=== PATIENT | male | born 1970 | race Caucasian/White ===

== ENCOUNTER 2019-04-19 02:07 | Emergency (ER) | payer SELFPAY ==
--- NOTE | 2019-04-19 02:34 | EDM.PDOCBH ---
ED HPI GENERAL MEDICAL PROBLEM - General Chief Complaint: Behavioral/Psych Stated Complaint: ALIYA SHAH Time Seen by Provider: 04/19/19 02:33 Source of Information: Reports: Patient History Limitations: Reports: No Limitations - History of Present Illness INITIAL COMMENTS - FREE TEXT/NARRATIVE: 48-year-old male presents to the ED after walking to the ED about 2 miles. He is currently residing at his parent's home which is around the [facility]. He reports that he has not slept at all for the last 3-4 days. Feels exhausted and tired but cannot fall asleep. Patient was started on gabapentin 100 mg 3 times a day about a month ago for peripheral neuropathy in his feet which was disturbing his sleep. He has been gradually escalating the dose and still has symptomatology in his feet. He is starting to experience suicidal ideation. He states that he is hearing voices telling him that he should kill himself. His is the reason that he attended the ED. He has no past history of psychiatric illness. He is alert oriented and denies any substance abuse issues. He is a type II diabetic controlled with oral medication. Denies drinking any alcohol. Has no appetite. Onset Date: 04/18/19 (Auditory hallucinations with suicidal ideation telling him that he should kill himself started yesterday. They come and go. He has never felt suicidal before.) Duration: Hour(s):, Day(s): (Has not slept for 3 or 4 days.) Location: Reports: Other (Severe insomnia with development of psychosis-like symptoms.) Quality: Reports: Other Severity: Severe (Insomnia mostly for 3-4 days.) Improves with: Reports: None Worsens with: Reports: None Context: Denies: Activity, Exercise, Lifting, Sick Contact, Trauma, Other Associated Symptoms: Reports: Other (Feels absolutely exhausted.) Treatments RIGHT OF WAY CLEARER: Reports: Other (see below) (Gabapentin) - Related Data Allergies Allergy/AdvReac Type Severity Reaction Status Date / Time hornet venom Allergy Hives Verified 04/19/19 02:29 promethazine AdvReac Vomiting Verified 04/19/19 02:29 Home Meds: Home Meds clonazePAM [Klonopin] 2 mg PO DAILY PRN #12 tablet 04/19/19 [Rx] hydrOXYzine HCl [Hydroxyzine HCl] 25 mg PO DAILY PRN #30 tablet 04/19/19 [Rx] Past Medical History Musculoskeletal History: Reports: Other (See Below) (Previous MRSA infection left foot that required 6 weeks of IV antibiotics through a PICC line right antecubital fossa. He believes this is the cause of his peripheral neuropathy. It is more likely to be caused from his diabetes.) Endocrine/Metabolic History: Reports: Diabetes, Type II (On diet and oral medications for diabetes control.) Social & Family History - Living Situation & Occupation Living situation: Reports: Occupation: Employed ED ROS GENERAL - Review of Systems Review Of Systems: See Below Constitutional: Reports: Malaise, Weakness, Fatigue, Decreased Appetite, Other. Denies: Fever, Chills HEENT: Reports: No Symptoms (Feels exhausted.) Respiratory: Reports: No Symptoms Cardiovascular: Reports: No Symptoms, Blood Pressure Problem. Denies: Chest Pain, Claudication, Dyspnea on Exertion, Edema, Lightheadedness, Orthopnea ( Mild hypertension) Endocrine: Reports: Fatigue GI/Abdominal: Reports: No Symptoms : Reports: No Symptoms Musculoskeletal: Reports: Leg Pain (Bilateral lower extremity pain but much worse in the left side where he had MRSA infection.) Skin: Reports: No Symptoms Neurological: Reports: Numbness, Tingling, Other (Burning sensation left foot and leg due to peripheral neuropathy.) Psychiatric: Reports: Anxiety, Hallucinations (Auditory hallucinations.), Suicidal Ideation, Other (Severe insomnia with no sleep for 4 days.) Hematologic/Lymphatic: Reports: No Symptoms Immunologic: Reports: No Symptoms ED EXAM, BEHAVIORAL HEALTH - Physical Exam Exam: See Below Exam Limited By: No Limitations General Appearance: Alert, WD/WN, Other (Appears exhausted. All questions quite appropriately however. No signs of intoxication. Vital signs show temperature 36.2 pulse is 94 sinus respiratory of 20 O2 sats of 99%. BP 128/99.) Eye Exam: Bilateral Eye: Normal Inspection, PERRL Throat/Mouth: Other Head: Atraumatic (Tongue is moist.), Normocephalic, Other Neck: Normal Inspection, Supple (No old signs of any head or facial trauma.), Non-Tender, Full Range of Motion. No: Lymphadenopathy (L), Lymphadenopathy (R) Respiratory/Chest: No Respiratory Distress, Lungs Clear, Normal Breath Sounds, No Accessory Muscle Use, Chest Non-Tender Cardiovascular: Normal Peripheral Pulses, Regular Rate, Rhythm, No Edema, No Gallop, No Murmur, No Rub GI/Abdominal: Normal Bowel Sounds, Soft, Non-Tender, No Organomegaly, No Abnormal Bruit, No Mass, Pelvis Stable Extremities: Normal Inspection, Normal Range of Motion, Non-Tender. No: Pedal Edema Neurological: Alert, CN II-XII Intact, Normal Cognition, No Motor/Sensory Deficits, Oriented x 3 Psychiatric: Normal Cognition, Oriented, Depressed Mood, Flat Affect, Suicidal Thoughts, Auditory Hallucinations (Requesting auditory hallucinations telling him to kill himself.). No: Normal Affect, Poor Eye Contact, Uncooperative, Withdrawn, Flight of Ideas, Homicidal Thoughts, Phobic, Yarsani Delusions, Suicidal Plan, Tangential Thoughts, Visual Hallucinations, Grandiose Thoughts, Pressured Speech Skin Exam: Warm, Dry, Intact, Normal color, No rash COURSE, BEHAVIORAL HEALTH COMP - Course Vital Signs: Last Vital Signs Temp 37.3 C 04/19/19 08:00 Pulse 102 H 04/19/19 08:00 Resp 16 04/19/19 08:00 BP 137/99 H 04/19/19 08:00 Pulse Ox 99 04/19/19 08:00 Orders, Labs, Meds: Medications Discontinued Medications Generic Name Dose Route Start Last Admin Trade Name Freq PRN Reason Stop Dose Admin Hydroxyzine HCl 50 mg 04/19/19 02:42 04/19/19 02:56 Atarax PO 04/19/19 02:43 50 mg ONETIME ONE Administration Lorazepam 2 mg 04/19/19 02:41 04/19/19 02:56 Ativan PO 04/19/19 02:42 2 mg ONETIME ONE Administration Re-Assessment/Re-Exam: 48-year-old male presents to the ED after walking a mile and a half to 2 miles to the [facility]. States he simply can't sleep for the last 3-4 days and feels exhausted. He started to have auditory hallucinations telling him that he should kill himself. He has never felt this way before. He has chronic peripheral neuropathy in both lower extremities worse on the left side versus the right. He been slowly increasing gabapentin which he was started on a boat a month ago with very minimal relief of the burning and paresthesia sensation in his feet. Patient is a type II diabetic when he states his blood sugars are well-controlled on diet and oral medications. After discussion it appears that his suicidal ideations are few and far between. They just started yesterday and he states it simply due to lack of sleep which I do agree with. Patient will be given Ativan 2 mg by mouth and Atarax 50 mg by mouth to try and allow him some sleep. Will reevaluate after he gets some sleep to see if he is still feeling suicidal. Re-Assessment/Re-Exam Date: 04/19/19 (04:15: Patient has been able to sleep since receiving medication.) Re-Assessment/Re-Exam Time: 06:37 (Ration continues to sleep peacefully. Vital signs have remained normal with BP 133/84. Sats are 97%.) Departure - Departure Time of Disposition: 08:00 Disposition: Home, Self-Care 01 Condition: Fair Clinical Impression: Exhaustion, Depressive disorder, Passive suicidal ideations Insomnia disorder Qualifiers: Insomnia type: primary Qualified Code(s): F51.01 - Primary insomnia - Discharge Information *PRESCRIPTION DRUG MONITORING PROGRAM REVIEWED*: No *COPY OF PRESCRIPTION DRUG MONITORING REPORT IN PATIENT STAS: No Prescriptions: clonazePAM [Klonopin] 2 mg PO DAILY PRN #12 tablet PRN Reason: Insomnia hydrOXYzine HCl [Hydroxyzine HCl] 25 mg PO DAILY PRN #30 tablet PRN Reason: Insomnia Instructions: Suicidal Feelings: How to Help Yourself, Insomnia Referrals: Therese Koroma MD [Primary Care Provider] - Forms: ED Department Discharge Additional Instructions: Evaluation in the emergency room this morning in regards to severe insomnia with inability to sleep for the last 4 days or longer. His is resulted in significant exhaustion and mental stress. You admitted that you were having some suicidal ideation with no definitive plan. I believe this was secondary to exhaustion from insomnia--lack of ability to sleep. I understand that you're under duress with recent plain moved to [place]. You were treated in the emergency room with oral medications Ativan 2 mg and Atarax 50 mg to provide sleep. You slept well in the emergency department. Suggest taking Clonazapam 2 mg at bedtime and Atarax 25 mg at bedtime for the next 2 or 3 nights to ensure that you catch up on lack of sleep. If you continue to have thoughts of suicide or that she would be better off please go to one of the hospitals in [facility] emergency department for help. For now may continue gabapentin 3 times daily as you have been doing to help with peripheral neuropathy in your legs.
[2019-04-19] MEDS ORDERED: LORazepam 1 MG Tab PO ONE (02:41)
[2019-04-19] MEDS ORDERED: hydrOXYzine HCl 50 MG Tab PO ONE (02:42)
== END 2019-04-19 08:00 | disposition home or self-care (01) ==
LOC: JD.ED 02:07
DX: F32.9 Major depressive disorder, single episode, unspecified (principal); F51.01 Primary insomnia; R53.83 Other fatigue; E11.9 Type 2 diabetes mellitus without complications; Z91.030 Bee allergy status; Z88.8 Allergy status to other drugs, medicaments and biological substances
CPT/HCPCS: 99284; A9270

== ENCOUNTER 2019-12-09 08:27 | Day surgery (SDC) | payer OTHER, SELFPAY ==
--- NOTE | 2019-12-08 12:11 | PCM.PREANE ---
Preanesthetic Assessment - Procedure Proposed Procedure: Diagnostic EGD - Anesthesia/Transfusion/Family Hx Anesthesia History: No Prior Anesthesia Family History of Anesthesia Reaction: No Transfusion History: No Prior Transfusion(s) Intubation History: Unknown - Review of Systems General: No Symptoms, Fatigue Pulmonary: No Symptoms (Former smoker: 1-2 ppd times 30 years.(2010 quit date), ETOH: rarely) Cardiovascular: No Symptoms (HTN) Gastrointestinal: No Symptoms (GERD with certain foods), Abdominal Pain (RLQ reactive lymphadenopathy/? acute appendicitis), Constipation, Decreased Appetite (unintentional weight loss of 15#'s noted) Neurological: No Symptoms (History of vertigo for a whole year (6 yrs ago)/history of bulging disk in lower back.), Tingling (bilateral feet chronic/ history of MRSA in left foot.) Other: Reports: Diabetes (AM blood bwmdf=[id number] @ 0840), Depression, Anxiety - Physical Assessment NPO Status Date: 12/08/19 NPO Status Time: 20:00 Vital Signs: HR:84 Sat:95% B/P:146/100 Temp:97.7 Resp:16 Height: 1.83 m Weight: 117.027 kg ASA Class: 3 Mental Status: Alert & Oriented x3 Airway Class: Mallampati = 2 Dentition: Reports: Normal Dentition, Caries Thyro-Mental Finger Breadths: 3 Mouth Opening Finger Breadths: 3 ROM/Head Extension: Full Lungs: Clear to Auscultation, Normal Respiratory Effort Cardiovascular: Regular Rate, Regular Rhythm, No Murmurs - Lab Values: All labs reviewed and noted and within acceptable ranges to proceed with scheduled procedure. - Allergies Allergies/Adverse Reactions: Allergies Allergy/AdvReac Type Severity Reaction Status Date / Time hornet venom Allergy Hives Verified 12/08/19 16:24 promethazine AdvReac Vomiting Verified 12/08/19 16:24 - Anesthesia Plan Pre-Op Medication Ordered: None - Acknowledgements Anesthesia Type Planned: MAC Pt an Appropriate Candidate for the Planned Anesthesia: Yes Alternatives and Risks of Anesthesia Discussed w Pt/Guardian: Yes Pt/Guardian Understands and Agrees with Anesthesia Plan: Yes PreAnesthesia Questionnaire Cardiovascular History: Reports: Hypertension Musculoskeletal History: Reports: Other (See Below) (Previous MRSA infection left foot that required 6 weeks of IV antibiotics through a PICC line right antecubital fossa. He believes this is the cause of his peripheral neuropathy. It is more likely to be caused from his diabetes.) Psychiatric History: Reports: Anxiety, Depression Endocrine/Metabolic History: Reports: Diabetes, Type II (On diet and oral medications for diabetes control.) - HOME MEDS Home Medications: Home Meds ARIPiprazole [Aripiprazole] 2 mg PO DAILY 12/08/19 [History] Empagliflozin [Jardiance] 25 mg PO DAILY 12/08/19 [History] Lisinopril/Hydrochlorothiazide [Lisinopril-Hctz 20-25 mg Tab] 1 tab PO DAILY 12/08/19 [History] Rosuvastatin [Crestor] 10 mg PO DAILY 12/08/19 [History] Sertraline HCl 25 mg PO DAILY 12/08/19 [History] Sildenafil [Viagra] 100 mg PO ASDIRECTED PRN 12/08/19 [History] clonazePAM [Klonopin] 2 mg PO BEDTIME PRN 12/08/19 [History] ondansetron HCL [Zofran] 8 mg PO Q8H PRN 12/08/19 [History] - CURRENT (IN HOUSE) MEDS Current Meds: Current Medications Lactated Ringer's (Ringers, Lactated) 1,000 mls @ 125 mls/hr IV ASDIRECTED MAY Stop: 12/09/19 23:00 Lidocaine/Sodium Bicarbonate (Buffered Lidocaine 1% In Ns 8.4%) 0.25 ml IDERM ONETIME PRN PRN Reason: Prior to IV Start Stop: 12/09/19 18:00 Sodium Chloride (Saline Flush) 10 ml FLUSH ASDIRECTED PRN PRN Reason: Keep Vein Open Stop: 12/09/19 18:00
[~2019-12-09 08:27] MED LIST: Lactated Ringers 1,000 ML IV SCH; Lidocaine 1% 6 ML ONE; Lidocaine 1%/Sod Bicarbonate in NS 8.4% 1 ML Syringe IDERM PRN; Propofol 200 MG/20 ML SDV ONE; Sodium Chloride 0.9% 10 ML Syringe FLUSH PRN; fentaNYL 100 MCG/2 ML SDV ONE
[2019-12-09] MEDS ORDERED: Ondansetron 4 MG/2 ML SDV ONE (09:13)
--- NOTE | 2019-12-09 09:37 | PCM48HPAN ---
Post Anesthesia Note - EVALUATION WITHIN 48HRS OF ANESTHETIC Vital Signs in Normal Range: Yes Patient Participated in Evaluation: Yes Respiratory Function Stable: Yes Airway Patent: Yes Cardiovascular Function Stable: Yes Hydration Status Stable: Yes Pain Control Satisfactory: Yes Nausea and Vomiting Control Satisfactory: Yes Mental Status Recovered: Yes Vital Signs: Last Vital Signs Temp 36.5 C 12/09/19 08:30 Pulse 84 12/09/19 08:30 Resp 16 12/09/19 08:30 BP 146/100 H 12/09/19 08:30 Pulse Ox 95 12/09/19 08:30
--- NOTE | 2019-12-09 09:56 | PCM.PRNOTE ---
- Free Text/Narrative Note: Date: 12/09/2019 Procedure: diagnostic esophagogastroduodenoscopy Endoscopist: Alf Bell MD Findings: no gross abnormality Detailed report: The patient was taken to the endoscopy suite and placed in left lateral decubitus position. Time out was performed and monitored sedation initiated. A bite-block was placed. The endoscope was inserted into the mouth and advanced to the duodenum with ease. Duodenal mucosa appeared grossly normal, a sample biopsy was obtained with forceps. The stomach also appeared grossly normal, with no evidence of ulceration or inflammation. Sample biopsies were obtained of the antrum and body of the stomach. On retroflexion, the fundus appeared normal, and there was no evidence of hiatal hernia. The distal esophagus appeared normal, with normal Z line. No gross evidence for metaplasia or reflux esophagitis noted. A biopsy of the distal esophageal mucosa was obtained. The remainder of the esophagus appeared normal. Air was suctioned from the stomach, and the scope was completely withdrawn. The patient tolerated the procedure well.
== END 2019-12-09 10:15 | disposition home or self-care (01) ==
LOC: JD.SDS 08:27
PROVIDERS: ATTEND Surgery
DX: K29.50 Unspecified chronic gastritis without bleeding (principal); F41.9 Anxiety disorder, unspecified; F32.9 Major depressive disorder, single episode, unspecified; I10 Essential (primary) hypertension; E78.5 Hyperlipidemia, unspecified; E11.9 Type 2 diabetes mellitus without complications; Z88.8 Allergy status to other drugs, medicaments and biological substances; Z79.899 Other long term (current) drug therapy; Z87.891 Personal history of nicotine dependence
CPT/HCPCS: 43239; 82962; J2001; J2405; J2704; J3010; J7120; 00731

== ENCOUNTER 2021-01-23 14:35 | Emergency (ER) | payer OTHER ==
[~2021-01-23 14:35] MED LIST changes: +Amiodarone 150 MG/3 ML SDV ONE; +Calcium Chloride 10% 1 GM/10 ML Syringe ONE; +EPINEPHrine 1:10,000 1 MG/10 ML Syringe ONE; -Lactated Ringers 1,000 ML IV SCH; -Lidocaine 1% 6 ML ONE; -Lidocaine 1%/Sod Bicarbonate in NS 8.4% 1 ML Syringe IDERM PRN; +Lidocaine 2% 100 MG/5 ML Syringe ONE; -Propofol 200 MG/20 ML SDV ONE; +Sodium Bicarbonate 8.4% 50 MEQ/50 ML Syringe ONE; -Sodium Chloride 0.9% 10 ML Syringe FLUSH PRN; -fentaNYL 100 MCG/2 ML SDV ONE
--- NOTE | 2021-01-24 07:21 | EDM.PDOC ---
ED HPI GENERAL MEDICAL PROBLEM - General Chief Complaint: CPR in Progress Stated Complaint: [facility] Time Seen by Provider: 01/23/21 14:35 - History of Present Illness INITIAL COMMENTS - FREE TEXT/NARRATIVE: 50-year-old male brought in by EMS after having an episode at home. By history the patient fell out of the shower in a very awkward position his heard him went up to help could not move him did not believe he was breathing he took 3 deep breaths over the course of 3 to 5 minutes. She cannot move him out of the face down position. EMS arrived he was in V. fib resuscitative efforts started 7 to 10 minutes after he fell out of the shower. According to the the patient has not been feeling well for the last week he had a syncopal-like episode shortly before last week and he has been having intermittent chest discomfort throughout this last week. Patient is a diabetic. - Related Data Allergies Allergy/AdvReac Type Severity Reaction Status Date / Time hornet venom Allergy Hives Verified 12/08/19 16:24 promethazine AdvReac Vomiting Verified 12/08/19 16:24 Home Meds: Home Meds ARIPiprazole [Aripiprazole] 2 mg PO DAILY 12/08/19 [History] Empagliflozin [Jardiance] 25 mg PO DAILY 12/08/19 [History] Lisinopril/Hydrochlorothiazide [Lisinopril-Hctz 20-25 mg Tab] 1 tab PO DAILY 12/08/19 [History] Rosuvastatin [Crestor] 10 mg PO DAILY 12/08/19 [History] Sertraline HCl 25 mg PO DAILY 12/08/19 [History] Sildenafil [Viagra] 100 mg PO ASDIRECTED PRN 12/08/19 [History] clonazePAM [Klonopin] 2 mg PO BEDTIME PRN 12/08/19 [History] ondansetron HCL [Zofran] 8 mg PO Q8H PRN 12/08/19 [History] Temazepam 30 mg PO ASDIRECTED 12/09/19 [History] Empagliflozin [Jardiance] 25 mg PO 01/20/21 [History] LORazepam [Ativan] 1 mg PO 01/20/21 [History] Loratadine [Claritin] 10 mg PO DAILY 01/20/21 [History] amLODIPine [Norvasc] 5 mg PO DAILY 01/20/21 [History] lisinopriL [Prinivil] 40 mg PO DAILY 01/20/21 [History] predniSONE [Prednisone] 50 mg PO 01/20/21 [History] tadalafiL [Alyq] 20 mg PO 01/20/21 [History] Past Medical History HEENT History: Reports: Allergic Rhinitis Cardiovascular History: Reports: Hypertension Respiratory History: Reports: None Gastrointestinal History: Reports: Other (See Below) Other Gastrointestinal History: abdominal pain, appendicitis, nausea Genitourinary History: Reports: Other (See Below) Other Genitourinary History: erectile dysfunction [employer] History: Reports: None Musculoskeletal History: Reports: Other (See Below) (Previous MRSA infection left foot that required 6 weeks of IV antibiotics through a PICC line right antecubital fossa. He believes this is the cause of his peripheral neuropathy. It is more likely to be caused from his diabetes.) Neurological History: Reports: None Psychiatric History: Reports: Anxiety, Depression Endocrine/Metabolic History: Reports: Diabetes, Type II (On diet and oral medications for diabetes control.) Hematologic History: Reports: None Immunologic History: Reports: None Oncologic (Cancer) History: Reports: None Dermatologic History: Reports: None - Infectious Disease History Infectious Disease History: Reports: None - Past Surgical History Head Surgeries/Procedures: Reports: None HEENT Surgical History: Reports: Tonsillectomy Cardiovascular Surgical History: Reports: None Respiratory Surgical History: Reports: None GI Surgical History: Reports: None Female Surgical History: Reports: None Male Surgical History: Reports: None Neurological Surgical History: Reports: None Musculoskeletal Surgical History: Reports: None Oncologic Surgical History: Reports: None Social & Family History - Caffeine Use Caffeine Use: Reports: None - Living Situation & Occupation Living situation: Reports: Occupation: Employed ED ROS GENERAL - Review of Systems Review Of Systems: See Below Reason Not Obtained: CPR in progress ED EXAM, CPR - Physical Exam Exam: See Below Limited By: Unresponsive General Appearance: Other (Patient presents with CPR ongoing he has had several rounds of epinephrine and several attempts at defibrillation) Throat/Mouth: Other (Jaya airway in place and it is working with bilateral breath sounds) Head: Normocephalic Respiratory Chest: Other (No respiratory effort he is getting bagged via the Jaya airway) Cardiovascular: Other (Cardiac activity) Course - Re-Assessments/Exams Free Text/Narrative Re-Assessment/Exam: 01/24/21 07:21 We continued CPR after 35 minutes I discussed the situation with the patient's family and friends. And I did not believe I had anything to offer Jhoan. I did go back and review the situation with the resuscitation team and resuscitation efforts were terminated at 1510. The patient had multiple attempts at defibrillation in our department had received multiple rounds of medication including epinephrine, amiodarone, calcium and lidocaine. He received good quality chest compressions and reasonable respiratory supplementation with Jaya airway that worked well with bilateral breath sounds throughout the resuscitation attempt. Departure - Departure Time of Disposition: 15:10 Disposition: 20 Clinical Impression: Cardiac arrest with ventricular fibrillation - Discharge Information Referrals: Davi Carrasco MD [Primary Care Provider] - Forms: ED Department Discharge
== END 2021-01-23 19:37 | disposition expired ==
LOC: JD.ED 14:35
DX: I46.9 Cardiac arrest, cause unspecified (principal); I48.91 Unspecified atrial fibrillation; E11.9 Type 2 diabetes mellitus without complications; I10 Essential (primary) hypertension; Z91.030 Bee allergy status; Z88.8 Allergy status to other drugs, medicaments and biological substances; Z79.899 Other long term (current) drug therapy
CPT/HCPCS: 92950; 99285; J0171; J0282; 99284